=== PATIENT | male | born 1960 | race Caucasian/White ===

== ENCOUNTER 2019-03-31 13:52 | Emergency (ER) | payer MEDICARE, MEDICAID ==
[~2019-03-31] VITALS: Ht 177.8 cm; Wt 82.0 kg
--- NOTE | 2019-03-31 14:18 | NUR ---
PT TO ROOM FROM LOBBY VIA OWN MOTORIZED WHEELCHAIR. PT CO WORSENING DISCOLORATION/SWELLING/DECREASED ROM TO L GREAT TOE X ONE MONTH. TOE APPEARS DISCOLORED. NO OPEN WOUNDS OR DRAINAGE NOTED. PT DENIES FEVER. +SMOKER. POSSIBLE DM HX, "THEY TOLD ME ONCE I WAS DIABETIC- BUT I HAVEN'T BEEN ON MEDS". BP/SPO2 MONITOR IN PLACE.
[2019-03-31 14:29] LABS: MEAN CORPUSCULAR HEMOGLOBIN 37.9 pg (27.5-34.5); MEAN CORPUSCULAR HGB CONC 34.2 g/dL (33.2-36.2); MEAN CORPUSCULAR VOLUME 110.8 fL (81-97); MEAN PLATELET VOLUME 6.9 fL (7.4-10.4); PLATELET COUNT 235 x10^3/uL (130-400); RED BLOOD COUNT 4.52 x10^6/uL (4.38-5.82); RED CELL DISTRIBUTION WIDTH 15.8 % (9.4-14.8)
--- NOTE | 2019-03-31 14:31 | NUR ---
THROUGHPUT: US AWARE OF STAT ORDER, WILL SEE PT ANJELICA.
[2019-03-31 14:37] LABS: INTERNATIONAL NORMALIZED RATIO 0.97 (0.93-1.1); PROTHROMBIN TIME 10.2 Seconds (9.6-11.5)
[2019-03-31 14:40] LABS: ALBUMIN 3.9 g/dL (3.4-5.0); ANION GAP 8 mmol/L (5-15); CALCIUM 8.5 mg/dL (8.5-10.1); CHLORIDE 106 mmol/L (98-107)
[2019-03-31 14:41] LABS: CREATININE 0.92 mg/dL (0.7-1.3)
--- NOTE | 2019-03-31 14:50 | NUR ---
ATTEMPTED DOPPLER OF LLE. UNABLE TO LOCATE PEDAL OR POSTERIOR TIBIAL. RLE PULSES FAINT BUT DETECTABLE. ERP AWARE. VASCULAR STUDY ORDERED.
[2019-03-31 15:09] LABS: BASOPHILS # (AUTO) 0.05 x10^3/uL (0-0.1); BASOPHILS % (AUTO) 1 % (0-1); EOSINOPHILS # (AUTO) 0.12 x10^3/uL (0-0.4); EOSINOPHILS % (AUTO) 2 % (1-7); LYMPHOCYTES # (AUTO) 2.03 x10^3/uL (1-3.4); LYMPHOCYTES % (AUTO) 32 % (22-44); MD MORPH REVIEW ONLY; MONOCYTES # (AUTO) 0.47 x10^3/uL (0.2-0.8); MONOCYTES % (AUTO) 7 % (2-9); NEUTROPHILS % (AUTO) 58 % (42-75)
[2019-03-31 15:42] LABS: <PLATELET ESTIMATE> ADEQUATE; <PLT MORPHOLOGY> NORMAL PLT MORPH; ANISOCYTOSIS 1+
--- NOTE | 2019-03-31 15:50 | NUR ---
US AT BEDSIDE
--- NOTE | 2019-03-31 17:00 | NUR ---
PT PROVIDED URINAL PER REQUEST. PT UPDATED TO POC (RESULTS/RECHECK) AND DEMONSTRATES UNDERSTANDING. AWAITING US READ
--- NOTE | 2019-03-31 17:07 | NUR ---
ORDERS RECEIVED FOR CTA. TECH AT BEDSIDE TO PLACE IV.
[2019-03-31] MEDS ORDERED: SODIUM CHLORIDE FLUSH 10ML SYR IVF ONE (17:30)
--- NOTE | 2019-03-31 17:54 | NUR ---
ATTEMPTED TO CALL CARDIOVASCULAR US FOR RESULTS OF US. NO ANSWER.
[2019-03-31] MEDS ORDERED: OMNIPAQUE 350 MG/ML, 150 ML BOTTLE ONE (17:58)
[2019-03-31] MEDS ORDERED: ASPIRIN 325 MG TABLET PO ONE (18:51)
[2019-03-31 19:15] VITALS: BP 162/70
[2019-03-31] MEDS ORDERED: ASPIRIN 325 MG TABLET ONE (19:19)
== END 2019-03-31 19:27 | disposition home or self-care (01) ==
LOC: ED 18:02
DX: I70.223 Atherosclerosis of native arteries of extremities with rest pain, bilateral legs (principal); E11.9 Type 2 diabetes mellitus without complications; F17.200 Nicotine dependence, unspecified, uncomplicated
CPT/HCPCS: 36415; 75635; 80048; 82040; 85025; 85610; 85730; 93005; 93922; 93925; 93978; 99284; Q9967

== ENCOUNTER → 2019-04-28 | Outpatient (CLI) | payer MEDICARE, MEDICAID ==
[2019-04-28 08:38] LABS: ANION GAP 5 mmol/L (5-15); CALCIUM 8.4 mg/dL (8.5-10.1); CHLORIDE 106 mmol/L (98-107); CREATININE 0.75 mg/dL (0.7-1.3)
[2019-04-28 08:39] LABS: MEAN CORPUSCULAR HEMOGLOBIN 38.2 pg (27.5-34.5); MEAN CORPUSCULAR HGB CONC 34.1 g/dL (33.2-36.2); MEAN CORPUSCULAR VOLUME 112.2 fL (81-97); MEAN PLATELET VOLUME 6.9 fL (7.4-10.4); PLATELET COUNT 247 x10^3/uL (130-400); RED BLOOD COUNT 4.09 x10^6/uL (4.38-5.82); RED CELL DISTRIBUTION WIDTH 16.3 % (9.4-14.8)
[2019-04-28 09:25] LABS: BASOPHILS # (AUTO) 0.03 x10^3/uL (0-0.1); BASOPHILS % (AUTO) 0 % (0-1); EOSINOPHILS # (AUTO) 0.21 x10^3/uL (0-0.4); EOSINOPHILS % (AUTO) 3 % (1-7); LYMPHOCYTES # (AUTO) 1.48 x10^3/uL (1-3.4); LYMPHOCYTES % (AUTO) 21 % (22-44); MD SCAN; MONOCYTES # (AUTO) 0.52 x10^3/uL (0.2-0.8); MONOCYTES % (AUTO) 7 % (2-9); NEUTROPHILS # (AUTO) 4.91 x10^3/uL (1.8-6.8); NEUTROPHILS % (AUTO) 69 % (42-75)
== END | disposition home or self-care (01) ==
LOC: LAB 08:13
PROVIDERS: ATTEND Surgery
DX: Z01.812 Encounter for preprocedural laboratory examination (principal); I70.213 Atherosclerosis of native arteries of extremities with intermittent claudication, bilateral legs
CPT/HCPCS: 36415; 80048; 85025

== ENCOUNTER 2019-05-13 07:31 | Observation (INO) | payer MEDICARE, MEDICAID ==
[~2019-05-13] VITALS: Ht 177.8 cm; Wt 82.0 kg
[2019-05-13 08:28] VITALS: BP 171/72
[2019-05-13] MEDS ORDERED: MIDAZOLAM 1 MG/ML, 5ML ONE (08:32)
[2019-05-13] MEDS ORDERED: ASPI-496 PO (08:32)
[2019-05-13] MEDS ORDERED: FENTANYL PF 100 MCG/2ML ONE (08:32)
[2019-05-13] MEDS ORDERED: NALOXONE 1 MG/ML, 2ML ONE (08:32)
[2019-05-13] MEDS ORDERED: CHOLESTEROL MED PO (08:32)
[2019-05-13] MEDS ORDERED: PROTAMINE SULFATE 10 MG/ML, 25ML ONE (08:32)
[2019-05-13] MEDS ORDERED: FLUMAZENIL 0.1 MG/1 ML, 5ML ONE (08:32)
[2019-05-13] MEDS ORDERED: HEPARIN 1,000 UNITS/ML, 10ML ONE (08:32)
[2019-05-13] MEDS ORDERED: LIDOCAINE 1%, 20ML ONE (08:35)
[2019-05-13 08:54] LABS: MEAN CORPUSCULAR HEMOGLOBIN 37.8 pg (27.5-34.5); MEAN CORPUSCULAR HGB CONC 33.6 g/dL (33.2-36.2); MEAN CORPUSCULAR VOLUME 112.7 fL (81-97); MEAN PLATELET VOLUME 7.2 fL (7.4-10.4); PLATELET COUNT 254 x10^3/uL (130-400); RED BLOOD COUNT 4.21 x10^6/uL (4.38-5.82); RED CELL DISTRIBUTION WIDTH 15.1 % (9.4-14.8)
[2019-05-13 09:07] LABS: ALANINE AMINOTRANSFERASE 27 U/L (12-78); ANION GAP 9 mmol/L (5-15); CALCIUM 8.8 mg/dL (8.5-10.1); CHLORIDE 106 mmol/L (98-107); CREATININE 0.79 mg/dL (0.7-1.3)
[2019-05-13 09:09] LABS: ALKALINE PHOSPHATASE 97 U/L (45-117); TOTAL PROTEIN 7.3 g/dL (6.4-8.2)
[2019-05-13 09:40] LABS: BASOPHILS # (AUTO) 0.02 x10^3/uL (0-0.1); BASOPHILS % (AUTO) 0 % (0-1); EOSINOPHILS # (AUTO) 0.18 x10^3/uL (0-0.4); EOSINOPHILS % (AUTO) 2 % (1-7); LYMPHOCYTES % (AUTO) 19 % (22-44); MD SCAN; MONOCYTES # (AUTO) 0.61 x10^3/uL (0.2-0.8); MONOCYTES % (AUTO) 7 % (2-9); NEUTROPHILS # (AUTO) 6.15 x10^3/uL (1.8-6.8); NEUTROPHILS % (AUTO) 72 % (42-75)
[2019-05-13] MEDS ORDERED: ONDANSETRON 2MG/ML, 2ML IVPush PRN (12:00)
[2019-05-13] MEDS ORDERED: ACETAMINOPHEN 325 MG TABLET PO PRN (12:00)
[2019-05-13] MEDS ORDERED: LACTATED RINGERS 1,000 ML IV SCH (13:00)
[2019-05-13 14:15] VITALS: BP 146/91
[2019-05-13] MEDS: SODIUM CHLORIDE FLUSH 10ML SYR IVF SCH (20:45)
[2019-05-13 20:51] VITALS: BP 126/70
[2019-05-14 01:01] VITALS: BP 131/78
[2019-05-14 04:35] VITALS: BP 115/64
[2019-05-14] MEDS ORDERED: ASPIRIN 81 MG TABLET EC PO SCH (06:00)
[2019-05-14] MEDS: SODIUM CHLORIDE FLUSH 10ML SYR IVF SCH (09:02)
[2019-05-14 13:16] VITALS: BP 160/78
== END 2019-05-14 15:00 | disposition home or self-care (01) ==
LOC: OUT 07:31 → 4NOR 11:07 → OUT 11:12 → 4NOR 11:12 → DCLOUNGE 05-14 14:45
PROVIDERS: ADMIT Surgery; ATTEND Surgery
DX: I70.0 Atherosclerosis of aorta (principal); I73.9 Peripheral vascular disease, unspecified; I99.8 Other disorder of circulatory system; M79.605 Pain in left leg; M79.604 Pain in right leg; R60.0 Localized edema; F17.210 Nicotine dependence, cigarettes, uncomplicated; Z79.82 Long term (current) use of aspirin; Z79.899 Other long term (current) drug therapy
CPT/HCPCS: 36415; 37221; 37252; 37253; 75630; 76937; 80053; 82962; 85025; 99156; 99157; C1725; C1751; C1753; C1760; C1769; C1874; C1876; C1894; G0378; J1644; J2250; J2720; J3010; J3490; J2310

== ENCOUNTER 2019-05-21 05:35 | Day surgery (SDC) | payer MEDICARE, MEDICAID ==
[~2019-05-21] VITALS: Ht 177.8 cm; Wt 78.4 kg
[~2019-05-21 05:35] MED LIST: ASPI-496 PO; CHOLESTEROL MED PO; LIDOCAINE-MPF 1%, 5ML ONE
[2019-05-21] MEDS ORDERED: LACTATED RINGERS 1,000 ML IV SCH (06:15)
[2019-05-21 06:20] VITALS: BP 131/74
[2019-05-21] MEDS ORDERED: LIDOCAINE 1%, 20ML ONE (07:09)
[2019-05-21] MEDS ORDERED: FENTANYL PF 100 MCG/2ML ONE (07:20)
[2019-05-21] MEDS ORDERED: PROTAMINE SULFATE 10 MG/ML, 25ML ONE (07:21)
[2019-05-21] MEDS ORDERED: NITROGLYCERIN 5 MG/ML, 10ML ONE (07:21)
[2019-05-21] MEDS ORDERED: MIDAZOLAM 1 MG/ML, 5ML ONE (07:21)
[2019-05-21] MEDS ORDERED: FLUMAZENIL 0.1 MG/1 ML, 5ML ONE (07:21)
[2019-05-21] MEDS ORDERED: HEPARIN 1,000 UNITS/ML, 10ML ONE (07:21)
[2019-05-21] MEDS ORDERED: NALOXONE 1 MG/ML, 2ML ONE (07:21)
== END 2019-05-21 08:13 | disposition home or self-care (01) ==
LOC: OUT 05:35
PROVIDERS: ATTEND Surgery
DX: I73.9 Peripheral vascular disease, unspecified (principal); Z53.8 Procedure and treatment not carried out for other reasons; I70.0 Atherosclerosis of aorta; F17.210 Nicotine dependence, cigarettes, uncomplicated; Z79.82 Long term (current) use of aspirin; Z83.3 Family history of diabetes mellitus; Z82.3 Family history of stroke; Z82.49 Family history of ischemic heart disease and other diseases of the circulatory system
CPT/HCPCS: J1644; J2250; J2720; J3010; J2310

== ENCOUNTER 2020-09-22 12:23 | Observation (INO) | payer MEDICARE, MEDICAID ==
[~2020-09-22] VITALS: Ht 177.8 cm; Wt 68.0 kg
[~2020-09-22 12:23] MED LIST changes: -LIDOCAINE-MPF 1%, 5ML ONE
[2020-09-22] MEDS ORDERED: D5%-0.45% NACL 1,000 ML IV STA (13:15)
[2020-09-22] MEDS ORDERED: ATOR40TA PO (13:19)
[2020-09-22 13:20] VITALS: BP 136/79
[2020-09-22 13:58] LABS: ALBUMIN 4.1 g/dL (3.4-5.0); ANION GAP 5 mmol/L (5-15); CALCIUM 8.7 mg/dL (8.5-10.1); CHLORIDE 104 mmol/L (98-107)
[2020-09-22] MEDS ORDERED: D5%-0.45% NACL 1,000 ML IV ONE (14:00)
[2020-09-22 14:01] LABS: ALANINE AMINOTRANSFERASE 22 U/L (12-78); ALKALINE PHOSPHATASE 85 U/L (45-117); TOTAL PROTEIN 7.2 g/dL (6.4-8.2)
[2020-09-22] MEDS ORDERED: FENTANYL PF 100 MCG/2ML ONE (14:02)
[2020-09-22] MEDS ORDERED: PROTAMINE SULFATE 10 MG/ML, 25ML ONE (14:03)
[2020-09-22] MEDS ORDERED: MIDAZOLAM 1 MG/ML, 5ML ONE (14:03)
[2020-09-22] MEDS ORDERED: NALOXONE 1 MG/ML, 2ML ONE (14:03)
[2020-09-22] MEDS ORDERED: HEPARIN 1,000 UNITS/ML, 10ML ONE (14:03)
[2020-09-22] MEDS ORDERED: FLUMAZENIL 0.1 MG/1 ML, 5ML ONE (14:03)
[2020-09-22] MEDS ORDERED: LIDOCAINE 1%, 10ML ONE (14:27)
[2020-09-22 14:32] LABS: BASOPHILS % (AUTO) 0 % (0-1); EOSINOPHILS % (AUTO) 2 % (1-7); LYMPHOCYTES % (AUTO) 29 % (22-44); MEAN CORPUSCULAR HEMOGLOBIN 41.1 pg (27.5-34.5); MEAN CORPUSCULAR HGB CONC 35.3 g/dL (33.2-36.2); MEAN PLATELET VOLUME 7.9 fL (7.4-10.4); MONOCYTES % (AUTO) 5 % (2-9); NEUTROPHILS % (AUTO) 63 % (42-75); PLATELET COUNT 153 x10^3/uL (130-400); RED CELL DISTRIBUTION WIDTH 17.1 % (9.4-14.8)
[2020-09-22 14:57] LABS: MD MORPH REVIEW ONLY
[2020-09-22] MEDS ORDERED: LACTATED RINGERS 1,000 ML IV SCH (16:30)
[2020-09-22] MEDS ORDERED: HYDROcodone/APAP 5/325 TABLET PO PRN (16:30)
[2020-09-22 16:36] LABS: <PLATELET ESTIMATE> ADEQUATE; <PLT MORPHOLOGY> NORMAL PLT MORPH; OVALOCYTES 1+
[2020-09-22] MEDS: LACTATED RINGERS 1,000 ML IV SCH (16:45)
[2020-09-22] MEDS ORDERED: ATORVASTATIN 80 MG TABLET PO SCH (21:00)
[2020-09-22 21:13] VITALS: BP 123/71
[2020-09-23 00:17] VITALS: BP 111/51
[2020-09-23 04:16] VITALS: BP 123/56
[2020-09-23] MEDS: LACTATED RINGERS 1,000 ML IV SCH (05:01)
[2020-09-23] MEDS ORDERED: ASPIRIN 81 MG TABLET CHEW PO SCH (09:00)
[2020-09-23 09:25] VITALS: BP 124/69
[2020-09-23 14:13] VITALS: BP 123/65
[2020-09-23 15:00] VITALS: BP 136/77
== END 2020-09-23 15:08 | disposition home or self-care (01) ==
LOC: OUT 12:23 → 4NE 15:54 → OUT 16:06
PROVIDERS: ADMIT Surgery; ATTEND Surgery
DX: I74.09 Other arterial embolism and thrombosis of abdominal aorta (principal); Z20.828 Contact with and (suspected) exposure to other viral communicable diseases; I70.211 Atherosclerosis of native arteries of extremities with intermittent claudication, right leg; I70.212 Atherosclerosis of native arteries of extremities with intermittent claudication, left leg; I70.0 Atherosclerosis of aorta; I99.8 Other disorder of circulatory system; R60.0 Localized edema; F15.10 Other stimulant abuse, uncomplicated; F17.200 Nicotine dependence, unspecified, uncomplicated; Z79.899 Other long term (current) drug therapy
CPT/HCPCS: 36415; 37220; 37222; 75630; 80053; 85025; 87635; 96360; 96361; 99156; 99157; C1725; C1751; C1760; C1769; C1894; G0378; J1644; J2250; J2720; J3010; J3490; J7120; J2310